=== PATIENT | male | born 1960 | race American Indian/Alaskan Native ===

== ENCOUNTER 2019-12-01 13:50 | Outpatient (CLI) | payer OTHER | END 2019-12-01 13:51 | disposition home or self-care (01) | LOC: LAB 13:50 | PROVIDERS: ATTEND Specialist | DX: G43.711 Chronic migraine without aura, intractable, with status migrainosus (principal) | CPT/HCPCS: 36415; 85652 ==

== ENCOUNTER 2021-02-17 11:00 | Outpatient (CLI) | payer OTHER | END 2021-02-17 11:01 | disposition home or self-care (01) | LOC: SLR 11:00 | PROVIDERS: ATTEND Specialist | DX: G47.33 Obstructive sleep apnea (adult) (pediatric) (principal) | CPT/HCPCS: 95811 ==